=== PATIENT | female | born 1945 | race African-American/Black ===

== ENCOUNTER 2017-06-02 21:24 | Emergency (ER) | payer BC, MEDICARE ==
[2017-06-02 22:29] LABS: Calcium 8.2 mg/dL (8.4-10.2)
[2017-06-02 22:34] LABS: Basophils % (Auto) 0.2 % (0.0-1.8); Eosinophils % (Auto) 0.6 % (0.0-4.3); Hematocrit 34.7 % (30.3-42.9); Hemoglobin 11.5 gm/dl (10.1-14.3); Lymphocytes # (Auto) 0.8 K/mm3 (1.2-5.4); Lymphocytes % (Auto) 17.1 % (13.4-35.0); Mean Corpuscular HGB Conc 33 % (30-34); Mean Corpuscular Hemoglobin 28 pg (28-32); Mean Corpuscular Volume 85 fl (79-97); Monocytes # (Auto) 0.4 K/mm3 (0.0-0.8); Monocytes % (Auto) 7.7 % (0.0-7.3); Platelet Count 195 K/mm3 (140-440); Red Blood Count 4.07 M/mm3 (3.65-5.03); Red Cell Distribution Width 13.9 % (13.2-15.2)
--- NOTE | 2017-06-02 23:49 | XRay Report ---
FINAL REPORT PROCEDURE: AP upright chest x-ray TECHNIQUE: Chest radiograph anteroposterior view. CPT 65859 HISTORY: Shortness of breath COMPARISON: No prior studies are available for comparison. FINDINGS: Patient is an apical lordotic position. Heart: Upper normal size. Mediastinum/Vessels: Normal. Lungs/Pleural space: Normal. Bony thorax: No acute osseous abnormality. There is mild thoracic scoliosis convex the right apex at T6. Life support devices: None. IMPRESSION: No evidence of acute cardiac or pulmonary process. Heart size upper normal..
[2017-06-03] MEDS ORDERED: NORCO 5/325 PO ONE (13:16)
[2017-06-03] MEDS ORDERED: TESSALON PERLES PO ONE (13:16)
[2017-06-03] MEDS ORDERED: DUONEB *Not for PRN Use IH ONE (13:16)
[2017-06-03] MEDS ORDERED: NACL 0.9% 1000 ML 1,000 ML IV ONE (15:26)
[2017-06-03] MEDS ORDERED: PROVENTIL IH ONE (16:13)
--- NOTE | 2017-06-03 17:09 | Emergency Department Report ---
- General Chief Complaint: Upper Respiratory Infection Stated Complaint: DIZZINESS Time Seen by Provider: 06/03/17 13:08 Source: patient, family Mode of arrival: Wheelchair Limitations: No Limitations - History of Present Illness Initial Comments: Patient is a 72-year-old female who is presenting with 6 days of cough cold congestion. Patient saw her primary care physician 4 days ago and was started on amoxicillin. Patient states that he symptoms have not improved. Patient is complaining of just generalized weakness chest tightness with a productive cough of clear sputum. Patient denies current fever nausea vomiting sore throat headache at this time. MD Complaint: cough Improves With: nothing Worsens With: activity, deep breaths Associated Symptoms: fever, chills, myalgias, rhinorrhea, nasal congestion, cough, shortness of breath. denies: diaphoresis, headache, sore throat, chest pain, abdominal pain, nausea, vomiting, diarrhea, dysuria, rash, confusion, right sweats, weight loss, epistaxis, hoarseness - Related Data Previous Rx's Medication Instructions Recorded Last Taken Type ALBUTEROL Inhaler [ProAir HFA 2 puff IH QID PRN #1 inhalation 06/03/17 Unknown Rx Inhaler] HYDROcodone/APAP 5-325 [[place] 1 each PO Q4HR PRN #15 tablet 06/03/17 Unknown Rx 5/325] Levofloxacin [Levaquin TAB] 500 mg PO QDAY #10 tablet 06/03/17 Unknown Rx predniSONE [Deltasone] 20 mg PO QDAY #5 tab 06/03/17 Unknown Rx Allergies Allergy/AdvReac Type Severity Reaction Status Date / Time No Known Allergies Allergy Unverified 03/27/13 15:35 ED Review of Systems ROS: Stated complaint: DIZZINESS Other details as noted in HPI Comment: All other systems reviewed and negative ED Past Medical Hx - Past Medical History Previous Medical History?: Yes Hx Hypertension: Yes Hx Heart Attack/AMI: Yes - Surgical History Past Surgical History?: No - Social History Smoking Status: Never Smoker - Medications Home Medications: Home Medications Medication Instructions Recorded Confirmed Last Taken Type ALBUTEROL Inhaler [ProAir HFA 2 puff IH QID PRN #1 inhalation 06/03/17 Unknown Rx Inhaler] HYDROcodone/APAP 5-325 [[place] 1 each PO Q4HR PRN #15 tablet 06/03/17 Unknown Rx 5/325] Levofloxacin [Levaquin TAB] 500 mg PO QDAY #10 tablet 06/03/17 Unknown Rx predniSONE [Deltasone] 20 mg PO QDAY #5 tab 06/03/17 Unknown Rx ED Physical Exam - General Limitations: No Limitations General appearance: alert, in no apparent distress - Head Head exam: Present: atraumatic, normocephalic - Eye Eye exam: Present: normal appearance - ENT ENT exam: Present: mucous membranes moist - Neck Neck exam: Present: normal inspection - Respiratory Respiratory exam: Present: wheezes. Absent: respiratory distress, rales, rhonchi - Cardiovascular Cardiovascular Exam: Present: regular rate, normal rhythm. Absent: systolic murmur, diastolic murmur, rubs, gallop - GI/Abdominal GI/Abdominal exam: Present: soft, normal bowel sounds - Extremities Exam Extremities exam: Present: normal inspection - Back Exam Back exam: Present: normal inspection - Neurological Exam Neurological exam: Present: alert, oriented X3 - Psychiatric Psychiatric exam: Present: normal affect, normal mood - Skin Skin exam: Present: warm, dry, intact, normal color. Absent: rash ED Course Vital Signs 06/02/17 06/03/17 21:40 14:59 Temperature 98.6 F 98.1 F Pulse Rate 88 98 H Respiratory 18 22 Rate Blood Pressure 127/76 Blood Pressure 106/60 [Right] O2 Sat by Pulse 96 96 Oximetry ED Medical Decision Making - Lab Data Result diagrams: 06/02/17 22:00 06/02/17 22:00 - EKG Data -: EKG Interpreted by Sc - EKG Data Interpretation: other (EKG shows sinus rhythm a rate of 89 because of left anterior fascicular block axis is leftward intervals are normal. No ST segment elevation or depressions time of interpretation is 0) - Radiology Data Radiology results: report reviewed This x-ray was negative for any acute process - Medical Decision Making Is a 72-year-old female who is presenting with cough cold congestion. Patient does not have pneumonia patient was flu negative. Patient did have mild wheeze was given several breathing treatments the wheezing has improved significantly. Patient will be discharged home. Because of the duration of her symptoms patient will have her antibiotic changed to something more effective. Patient also started on several medicines for symptomatic relief as well Critical Care Time: Yes Critical care time in (mins) excluding proc time.: 20 Critical care attestation.: If time is entered above; I have spent that time in minutes in the direct care of this critically ill patient, excluding procedure time. ED Disposition Clinical Impression: Upper respiratory infection Qualifiers: URI type: unspecified URI Qualified Code(s): J06.9 - Acute upper respiratory infection, unspecified Disposition: TO HOME OR SELFCARE Is pt being admited?: No Does the pt Need Aspirin: No Condition: Fair Prescriptions: ALBUTEROL Inhaler [ProAir HFA Inhaler] 2 puff IH QID PRN #1 inhalation PRN Reason: Shortness Of Breath HYDROcodone/APAP 5-325 [[place] 5/325] 1 each PO Q4HR PRN #15 tablet PRN Reason: Pain Levofloxacin [Levaquin TAB] 500 mg PO QDAY #10 tablet predniSONE [Deltasone] 20 mg PO QDAY #5 tab Referrals: ROSSANA RECIO MD [Staff Physician] - 3-5 Days
[2017-06-03 17:51] VITALS: BP 112/68
== END 2017-06-03 17:45 | disposition home or self-care (01) ==
LOC: ED 21:24
DX: J06.9 Acute upper respiratory infection, unspecified (principal); I10 Essential (primary) hypertension; I25.2 Old myocardial infarction; M79.1 Myalgia; R53.1 Weakness
CPT/HCPCS: 36415; 71045; 80048; 84484; 85025; 87400; 93005; 93010; 94640; 94644; 96361; 96374; 99284; J2930; J7030